=== PATIENT | male | born 1985 | race American Indian/Alaskan Native ===

== ENCOUNTER 2018-05-05 02:35 | Emergency (ER) | payer SELFPAY ==
[2018-05-05 02:40] VITALS: BP 126/78
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
[2018-05-05] MEDS ORDERED: BENTYL PO ONE (03:24)
[2018-05-05] MEDS ORDERED: ZOFRAN ODT PO ONE (03:24)
[2018-05-05] MEDS ORDERED: ALUM-MAG HYDROX-SIMETH 200-200-20MG/5ML PO ONE (03:24)
[2018-05-05] MEDS ORDERED: LIDOCAINE VISCOUS 2% PO ONE (03:24)
[2018-05-05 03:35] LABS: Hemoglobin 14.9 gm/dl (11.8-15.2); Mean Corpuscular HGB Conc 34 % (32-34); Mean Corpuscular Volume 86 fl (84-94); Platelet Count 431 K/mm3 (140-440); Red Blood Count 5.13 M/mm3 (3.65-5.03); Red Cell Distribution Width 13.5 % (13.2-15.2)
[2018-05-05] MEDS ORDERED: BENTYL ONE ×2 (03:36→05:19)
[2018-05-05 03:51] LABS: Amphetamine Screen,Urine PRESUMPTIVE NEGATIVE; Benzodiazepines Screen,Urine PRESUMPTIVE NEGATIVE; Cannabinoid Screen,Urine PRESUMPTIVE NEGATIVE; Cocaine Screen,Urine PRESUMPTIVE NEGATIVE; Methadone Screen,Urine PRESUMPTIVE NEGATIVE; Opiate Screen,Urine PRESUMPTIVE NEGATIVE
[2018-05-05 03:55] LABS: Amorphous Crystals,Urine 2+; Bilirubin,Urine NEG (Negative); Blood,Urine NEG (Negative); Color,Urine Yellow (Yellow); Protein,Urine <15 mg/dL mg/dL (Negative)
[2018-05-05 04:41] LABS: Albumin 4.4 g/dL (3.9-5); BUN/Creatinine Ratio 13; Bilirubin,Direct < 0.2 mg/dL (0-0.2); Blood Urea Nitrogen 13 mg/dL (9-20); Calcium 9.5 mg/dL (8.4-10.2); Hemolysis Index 156
[2018-05-05 04:43] LABS: Alanine Aminotransferase 13 units/L (7-56)
[2018-05-05 06:54] LABS: Band Neutrophils # (Manual) 0.3 K/mm3; Basophils % (Manual) 0 % (0.0-1.8); Eosinophils % (Manual) 0 % (0.0-4.3); Total Cells Counted 100
[2018-05-05 06:55] LABS: Large Platelets Few; RBC Morphology Normal
== END 2018-05-05 03:52 | disposition left against medical advice (07) ==
LOC: ED 02:35
DX: R10.84 Generalized abdominal pain (principal); R11.0 Nausea; Z79.899 Other long term (current) drug therapy
CPT/HCPCS: 36415; 80048; 80076; 80307; 81001; 83690; 85007; 85025; Q0162